=== PATIENT | female | born 1995 | race Caucasian/White ===

== ENCOUNTER 2018-03-16 10:06 | Emergency (ER) | payer SELFPAY ==
[2018-03-16 10:37] LABS: #Basophils 0.1 thou/uL (0.0-0.2); #Eosinphils 0.2 thou/uL (0.0-0.7); #Monocytes 0.9 thou/uL (0.11-0.59); #Neutrophils 10.5 thou/uL (1.40-6.50); %Basophils 0.4 % (0.0-1.0); %Lymphocytes 20.3 % (21.0-51.0); %Monocytes 6.4 % (0.0-10.0); %Neutrophils 71.8 % (42.0-75.0); Hemoglobin 15.3 g/dL (12.0-16.0); Mean Corpuscular HGB CONC 33.2 g/dL (32.0-36.0); Mean Corpuscular Hemoglobin 29.8 pg (27.0-31.0); Mean Corpuscular Volume 89.9 fL (78.0-98.0); Mean Platelet Volume 8.6 fL (7.4-10.4); Platelet Count 270 thou/uL (130-400); RBC Distribution Width 11.9 % (11.5-14.5); Red Blood Cell (RBC) Count 5.11 mill/uL (4.20-5.40); White Blood Cell (WBC) Count 14.6 thou/uL (4.8-10.8)
[2018-03-16 10:58] LABS: ALT (SGPT) 62 U/L (8-55); AST (SGOT) 41 U/L (5-34); Albumin 4.4 g/dL (3.5-5.0); Alkaline Phosphatase 69 U/L (40-150); Anion Gap 12 mmol/L (10-20); BUN (Urea Nitrogen) 9 mg/dL (7.0-18.7); Bilirubin, Total 0.5 mg/dL (0.2-1.2); Calc. Creatinine Clearance 0 mL/min (70-130); Calcium 9.6 mg/dL (7.8-10.44); Carbon Dioxide 24 mmol/L (22-29); Chloride 105 mmol/L (98-107); Estimated GFR-MDRD Greater than 90; Globulin 3.5 g/dL (2.4-3.5); Glucose 158 mg/dL (70-105); Potassium 3.8 mmol/L (3.5-5.1); Protein, Total 7.9 g/dL (6.0-8.3); Sodium 137 mmol/L (136-145)
--- NOTE | 2018-03-18 19:54 | EKG ---
Test Reason : N/V, DIZZINESS Blood Pressure : / mmHG Vent. Rate : 115 BPM Atrial Rate : 115 BPM P-R Int : 148 ms QRS Dur : 082 ms QT Int : 304 ms P-R-T Axes : 030 043 007 degrees QTc Int : 420 ms Sinus tachycardia Nonspecific T wave abnormality Abnormal ECG Confirmed by BAMBI JIEMNEZ DO ([id number]), manuscript editor DALILA VO ([id number]) on 03/18/2018 7:53:41 PM Referred By: Confirmed By:BAMBI JIMENEZ DO
== END 2018-03-16 11:50 | disposition home or self-care (01) ==
LOC: ERS 10:06
DX: B34.9 Viral infection, unspecified (principal)
CPT/HCPCS: 36415; 80053; 85025; 93005; 96360

== ENCOUNTER 2021-09-11 19:01 | Inpatient (IN) | payer SELFPAY ==
[~2021-09-11 19:01] MED LIST: Iopamidol-370 76% 500 ML 1 ML ONE
[2021-09-11] MEDS ORDERED: Acetaminophen 500 MG TAB ONE (19:12)
[2021-09-11] MEDS ORDERED: Morphine 4 MG/ML VIAL ONE (19:13)
[2021-09-11] MEDS ORDERED: Cefepime 2 GM VIAL ONE (19:19)
[2021-09-11 19:22] LABS: #Basophils 0.1 thou/uL (0.0-0.2); #Eosinphils 0.2 thou/uL (0.0-0.7); #Lymphocytes 2.9 thou/uL (1.20-3.40); #Monocytes 1.1 thou/uL (0.11-0.59); #Neutrophils 11.4 thou/uL (1.40-6.50); %Basophils 0.4 % (0.0-1.0); %Eosinophils 1.5 % (0.0-10.0); %Lymphocytes 18.3 % (21.0-51.0); %Monocytes 6.8 % (0.0-10.0); %Neutrophils 72.9 % (42.0-75.0); Hemoglobin 15.8 g/dL (12.0-16.0); Mean Corpuscular HGB CONC 32.9 g/dL (32.0-36.0); Mean Corpuscular Hemoglobin 30.6 pg (27.0-31.0); Mean Corpuscular Volume 93.1 fL (78.0-98.0); Mean Platelet Volume 9.2 fL (7.4-10.4); Platelet Count 246 thou/uL (130-400); RBC Distribution Width 11.9 % (11.5-14.5); Red Blood Cell (RBC) Count 5.17 mill/uL (4.20-5.40); White Blood Cell (WBC) Count 15.6 thou/uL (4.8-10.8)
[2021-09-11 19:34] LABS: Prothrombin Time 13.1 sec (12.0-14.7)
[2021-09-11 19:35] LABS: PTT 30.2 sec (22.9-36.1)
[2021-09-11 19:43] LABS: ALT (SGPT) 117 U/L (8-55); AST (SGOT) 55 U/L (5-34); Albumin 4.2 g/dL (3.5-5.0); Alkaline Phosphatase 75 U/L (40-110); Anion Gap 13 mmol/L (10-20); BUN (Urea Nitrogen) 7 mg/dL (7.0-18.7); Bilirubin, Total 0.7 mg/dL (0.2-1.2); Calc. Creatinine Clearance 0 mL/min (70-130); Calcium 9.1 mg/dL (7.8-10.44); Carbon Dioxide 26 mmol/L (22-29); Globulin 3.9 g/dL (2.4-3.5); Glucose 238 mg/dL (70-105); Potassium 4.1 mmol/L (3.5-5.1); Protein, Total 8.1 g/dL (6.0-8.3); Sodium 135 mmol/L (136-145)
[2021-09-11 20:10] LABS: Chloride 100 mmol/L (98-107)
[2021-09-11] MEDS ORDERED: Lidocaine 1% w/Epinephrine 1:100K 20 ML VIAL ONE (20:37)
[2021-09-11] MEDS ORDERED: Vancomycin 1 GM/200 ML BAG ONE (20:46)
[2021-09-11] MEDS ORDERED: Ondansetron ODT 4 MG TAB PO PRN (21:14)
[2021-09-11 22:02] LABS: Bacteria/HPF 1+ HPF (None Seen); Bilirubin Negative (Negative); Blood, Urine 3+ (Negative); Clarity Clear (Clear); Glucose, Urine (Dipstick) 200 mg/dL (Negative); Ketone, Urine Trace mg/dL (Negative); Leukocyte 75 Leu/uL (Negative); Nitrite Negative (Negative); Protein, Urine (Dipstick) 20 mg/dL (Neg-Trace); Specific Gravity, Urine 1.054 (1.002-1.036); Urobilinogen Normal mg/dL (Less than 2)
[2021-09-11 23:53] VITALS: BMI 47.0
[2021-09-12] MEDS ORDERED: Vancomycin 1.5 GRAM/300 ML BAG 1.5 GM in Premix Bag 1 BAG IVPB SCH (00:30)
[2021-09-12 01:59] LABS: SARS-CoV-2 NAA Rapid Test Not Detected (NotDetected)
[2021-09-12] MEDS: Acetaminophen 325 MG TAB PO PRN ×3 (04:14→18:00)
[2021-09-12 05:47] LABS: #Eosinphils 0.2 thou/uL (0.0-0.7); #Lymphocytes 2.4 thou/uL (1.20-3.40); #Monocytes 0.9 thou/uL (0.11-0.59); %Basophils 0.1 % (0.0-1.0); %Eosinophils 1.6 % (0.0-10.0); %Lymphocytes 21.1 % (21.0-51.0); %Monocytes 7.5 % (0.0-10.0); %Neutrophils 69.7 % (42.0-75.0); Hemoglobin 13.3 g/dL (12.0-16.0); Mean Corpuscular HGB CONC 32.2 g/dL (32.0-36.0); Mean Corpuscular Hemoglobin 30.5 pg (27.0-31.0); Mean Corpuscular Volume 94.7 fL (78.0-98.0); Platelet Count 198 thou/uL (130-400); RBC Distribution Width 11.8 % (11.5-14.5); Red Blood Cell (RBC) Count 4.38 mill/uL (4.20-5.40); White Blood Cell (WBC) Count 11.5 thou/uL (4.8-10.8)
[2021-09-12 06:09] LABS: Anion Gap 11 mmol/L (10-20); BUN (Urea Nitrogen) Less than 4 mg/dL (7.0-18.7); Calc. Creatinine Clearance 251 mL/min (70-130); Calcium 8.1 mg/dL (7.8-10.44); Carbon Dioxide 25 mmol/L (22-29); Chloride 104 mmol/L (98-107); Glucose 313 mg/dL (70-105); Potassium 3.6 mmol/L (3.5-5.1); Sodium 136 mmol/L (136-145)
[2021-09-12] MEDS ORDERED: HumaLOG 300 UNITS/3 ML VIAL SC PRN (08:59)
[2021-09-12] MEDS ORDERED: Dextrose 50% Abboject 50 ML SYRINGE SLOW IVP PRN (08:59)
[2021-09-12] MEDS ORDERED: Dextrose 5% in Water 1,000 ML IV PRN (08:59)
[2021-09-12] MEDS: Enoxaparin Sodium 40 MG/0.4 ML SYRINGE SC SCH (09:44)
[2021-09-12] MEDS ORDERED: Lidocaine 1% w/Epinephrine 1:100K 20 ML VIAL NERVE BLCK SCH (09:45)
[2021-09-12] MEDS ORDERED: Insulin Glargine 30 UNITS/0.3 ML VIAL SC SCH (09:45)
[2021-09-12] MEDS: Vancomycin 1 GM in Premix Bag 1 BAG IVPB SCH ×2 (09:45→17:11)
[2021-09-12] MEDS ORDERED: Lidocaine 1% (PF) 30 ML VIAL NERVE BLCK SCH (09:45)
[2021-09-12] MEDS: Ketorolac Tromethamine 30 MG/ML VIAL IVP PRN (10:05)
[2021-09-12] MEDS: HumaLOG 300 UNITS/3 ML VIAL SC SCH ×2 (12:03→16:52)
[2021-09-12] MEDS: HumaLOG 300 UNITS/3 ML VIAL SC PRN (16:53)
[2021-09-12] MEDS ORDERED: hydrOXYzine 10 MG TAB PO SCH (17:00)
[2021-09-13 01:35] LABS: Vancomycin, Trough 7.9 ug/mL
[2021-09-13] MEDS: Vancomycin 1.5 GRAM/300 ML BAG 1.5 GM in Premix Bag 1 BAG IVPB SCH ×3 (02:11→17:58)
[2021-09-13] MEDS: HumaLOG 300 UNITS/3 ML VIAL SC PRN (05:44)
[2021-09-13 07:23] LABS: #Eosinphils 0.3 thou/uL (0.0-0.7); #Lymphocytes 2.7 thou/uL (1.20-3.40); #Monocytes 0.6 thou/uL (0.11-0.59); #Neutrophils 4.8 thou/uL (1.40-6.50); %Basophils 0.5 % (0.0-1.0); %Eosinophils 3.8 % (0.0-10.0); %Lymphocytes 31.9 % (21.0-51.0); %Monocytes 7.4 % (0.0-10.0); %Neutrophils 56.4 % (42.0-75.0); Hemoglobin 14.1 g/dL (12.0-16.0); Mean Corpuscular HGB CONC 32.7 g/dL (32.0-36.0); Mean Platelet Volume 9.1 fL (7.4-10.4); Platelet Count 195 thou/uL (130-400); RBC Distribution Width 11.7 % (11.5-14.5); Red Blood Cell (RBC) Count 4.54 mill/uL (4.20-5.40); White Blood Cell (WBC) Count 8.5 thou/uL (4.8-10.8)
[2021-09-13 08:01] LABS: ALT (SGPT) 70 U/L (8-55); AST (SGOT) 42 U/L (5-34); Albumin 3.4 g/dL (3.5-5.0); Alkaline Phosphatase 64 U/L (40-110); Anion Gap 8 mmol/L (10-20); BUN (Urea Nitrogen) 4 mg/dL (7.0-18.7); Bilirubin, Total 0.5 mg/dL (0.2-1.2); Calc. Creatinine Clearance 251 mL/min (70-130); Calcium 8.8 mg/dL (7.8-10.44); Carbon Dioxide 29 mmol/L (22-29); Chloride 104 mmol/L (98-107); Globulin 3.1 g/dL (2.4-3.5); Glucose 222 mg/dL (70-105); Potassium 3.4 mmol/L (3.5-5.1); Protein, Total 6.5 g/dL (6.0-8.3); Sodium 138 mmol/L (136-145)
[2021-09-13] MEDS ORDERED: Lantus 1000 UNITS/10 ML VIAL SC SCH (09:00)
[2021-09-13] MEDS ORDERED: metFORMIN XR 500 MG TAB PO SCH (09:15)
[2021-09-13] MEDS: Ketorolac Tromethamine 30 MG/ML VIAL IVP PRN (09:35)
[2021-09-13] MEDS: HumaLOG 300 UNITS/3 ML VIAL SC SCH ×3 (09:36→17:59)
[2021-09-13] MEDS: Enoxaparin Sodium 40 MG/0.4 ML SYRINGE SC SCH (09:36)
[2021-09-13] MEDS ORDERED: Insulin Glargine 30 UNITS/0.3 ML VIAL SC SCH (09:45)
[2021-09-13] MEDS: Acetaminophen 325 MG TAB PO PRN (21:35)
[2021-09-14 01:48] LABS: Vancomycin, Trough 12.2 ug/mL
[2021-09-14] MEDS: Vancomycin 1.5 GRAM/300 ML BAG 1.5 GM in Premix Bag 1 BAG IVPB SCH ×2 (02:45→11:20)
[2021-09-14] MEDS: Ketorolac Tromethamine 30 MG/ML VIAL IVP PRN (02:47)
[2021-09-14] MEDS ORDERED: Morphine 4 MG/ML VIAL SLOW IVP SCH (07:00)
[2021-09-14] MEDS ORDERED: Morphine 4 MG/ML VIAL SLOW IVP PRN (07:51)
[2021-09-14] MEDS: metFORMIN XR 500 MG TAB PO SCH (08:49)
[2021-09-14] MEDS: HumaLOG 300 UNITS/3 ML VIAL SC SCH (08:49)
[2021-09-14] MEDS: Enoxaparin Sodium 40 MG/0.4 ML SYRINGE SC SCH (08:49)
[2021-09-14] MEDS ORDERED: Insulin Glargine 30 UNITS/0.3 ML VIAL SC SCH (09:00)
[2021-09-14] MEDS ORDERED: Ibuprofen 600 MG TAB PO PRN (10:43)
[2021-09-14] MEDS ORDERED: Sulfameth/Trimethoprim DS 800-160mg TAB PO SCH (10:45)
[2021-09-14] MEDS: HumaLOG 300 UNITS/3 ML VIAL SC PRN (11:36)
[2021-09-14] MEDS ORDERED: NPH, Human Insulin Isophane 300 UNIT/3 ML VIAL SC SCH ×2 (17:00→21:00)
[2021-09-14] MEDS: Sulfameth/Trimethoprim DS 800-160mg TAB PO SCH (21:28)
[2021-09-15] MEDS: HumuLIN 70/30 (300 UNITS/3 ML VIAL) SC SCH ×2 (09:26→16:52)
[2021-09-15] MEDS: metFORMIN XR 500 MG TAB PO SCH (09:29)
[2021-09-15] MEDS: Enoxaparin Sodium 40 MG/0.4 ML SYRINGE SC SCH (09:30)
[2021-09-15] MEDS: Sulfameth/Trimethoprim DS 800-160mg TAB PO SCH (09:31)
[2021-09-15] MEDS: HumaLOG 300 UNITS/3 ML VIAL SC PRN (14:08)
[2021-09-15 15:55] VITALS: BP 96/64; TEMP 98.3
== END 2021-09-15 18:00 | disposition home or self-care (01) | DRG 872 ==
LOC: ERS 19:01 → SURG A 20:51 → OBSVTOIN 20:51
PROVIDERS: ADMIT Emergency Medicine; ATTEND Emergency Medicine
PROC: 3E03329 Introduction of Other Anti-infective into Peripheral Vein, Percutaneous Approach (ICD-10-PCS; principal; 2021-09-11)
PROC: 0H9JXZZ Drainage of Left Upper Leg Skin, External Approach (ICD-10-PCS; 2021-09-12)
DX: A41.9 Sepsis, unspecified organism (principal); L02.415 Cutaneous abscess of right lower limb; L03.115 Cellulitis of right lower limb; Z68.42 Body mass index [BMI] 45.0-49.9, adult; Z20.822 Contact with and (suspected) exposure to COVID-19; E66.9 Obesity, unspecified; E11.9 Type 2 diabetes mellitus without complications
CPT/HCPCS: 10060; 36415; 36416; 80048; 80053; 80202; 81003; 81015; 83036; 83605; 85025; 85610; 85730; 87040; 87070; 87077; 87086; 87205; 94760; 96365; 96366; 96367; 96375; J0692; J1650; J1815; J1885; J2270; J3370; Q0162; Q9967; U0002

== ENCOUNTER 2022-03-03 09:02 | Emergency (ER) | payer SELFPAY ==
[2022-03-03] MEDS ORDERED: Bicillin LA 1.2 MILLION UNITS/2 ML SYRINGE ONE (10:47)
[2022-03-03] MEDS ORDERED: Dexamethasone 10 MG/ML VIAL ONE (10:47)
== END 2022-03-03 11:12 | disposition home or self-care (01) ==
LOC: ERS 09:02
DX: J02.0 Streptococcal pharyngitis (principal)
CPT/HCPCS: 96372; 99282; J0561; J1100

== ENCOUNTER 2022-05-15 13:56 | Emergency (ER) | payer MEDICAID ==
[2022-05-15] MEDS ORDERED: Bicillin LA 2.4 MILL.UNITS/4 ML SYRINGE ONE (14:23)
[2022-05-15] MEDS ORDERED: Dexamethasone 10 MG/ML VIAL ONE (14:23)
[2022-05-15] MEDS ORDERED: Bicillin LA 1.2 MILLION UNITS/2 ML SYRINGE ONE (14:32)
== END 2022-05-15 15:13 | disposition home or self-care (01) ==
LOC: ERS 13:56
DX: J02.0 Streptococcal pharyngitis (principal)
CPT/HCPCS: 96372; 99282; J0561; J1100

== ENCOUNTER 2024-12-19 04:04 | Emergency (ER) | payer BC ==
[2024-12-19 04:53] LABS: Cocaine Metabolite Screen Negative (Negative); THC/Cannabinoid Screen PRELIM POSITIVE (Negative); Tricyclic Screen Negative (Negative)
[2024-12-19 04:57] LABS: Pregnancy Test - Urine (BHCG) Negative (Negative); Pregu Control Background? CLEAR/WHITE (CLR/WHITE); Pregu Control Bar Appear? YES (CONTROL BAR)
[2024-12-19 05:01] LABS: #Basophils 0.03 10x3/uL (0.0-0.2); #Eosinophils 0.14 10x3/uL (0.0-0.7); #Monocytes 0.67 10x3/uL (0.11-0.59); #Neutrophils 5.07 10x3/uL (1.40-6.50); %Basophils 0.3 % (0.0-1.0); %Eosinophils 1.5 % (0.0-10.0); %Lymphocytes 34.6 % (21.0-51.0); %Monocytes 7.4 % (0.0-10.0); %Neutrophils 55.9 % (42.0-75.0); Hematocrit 41.7 % (36.0-47.0); Hemoglobin 13.6 g/dL (12.0-16.0); Mean Corpuscular Hemoglobin 29.3 pg (27.0-31.0); Mean Corpuscular Volume 89.9 fL (78.0-98.0); Platelet Count 246 10x3/uL (130-400); Red Blood Cell (RBC) Count 4.64 mill/uL (4.20-5.40); White Blood Cell (WBC) Count 9.08 10x3/uL (4.8-10.8)
[2024-12-19 05:20] LABS: Acetaminophen Less than 10 mcg/mL (Less than 10); Salicylate Less than 8.0 mg/dL (Less than 8.0)
[2024-12-19 05:21] LABS: ALT (SGPT) 22 U/L (Less than 34); AST (SGOT) 23 U/L (11-34); Albumin 4.2 g/dL (3.1-4.5); Alkaline Phosphatase 49 U/L (40-110); Anion Gap 14 mmol/L (10-20); BUN (Urea Nitrogen) 12 mg/dL (7.0-18.7); Bilirubin, Total 0.5 mg/dL (0.3-1.2); Calc. Creatinine Clearance 0 mL/min (70-130); Calcium 9.0 mg/dL (7.8-10.44); Carbon Dioxide 25 mmol/L (22-29); Chloride 108 mmol/L (98-107); Globulin 2.6 g/dL (2.4-3.5); Glucose 79 mg/dL (70-105); Potassium 3.8 mmol/L (3.5-5.1); Sodium 143 mmol/L (136-145)
[2024-12-19 05:25] LABS: Bacteria/HPF None Seen HPF (None Seen); CAUTI Indications for Culture Alt mental st,lethar; Glucose, Urine (Dipstick) Normal (Negative); Leukocyte Negative Leu/uL (Negative); Protein, Urine (Dipstick) Negative (Neg-Trace); RBC/HPF 0-3 HPF (0-3); Specific Gravity, Urine 1.030 (1.002-1.036); WBC/HPF 0-3 HPF (0-3)
[2024-12-19 05:29] LABS: Urine Culture Reflex No No
== END 2024-12-19 09:55 | disposition home or self-care (01) ==
LOC: ERS 04:04
DX: F43.20 Adjustment disorder, unspecified (principal); F17.290 Nicotine dependence, other tobacco product, uncomplicated
CPT/HCPCS: 36415; 80053; 80306; 80307; 81001; 81025; 85025; 93005; 99285

== ENCOUNTER 2025-04-09 19:39 | Emergency (ER) | payer BC ==
[2025-04-09 20:24] LABS: #Basophils 0.10 10x3/uL (0.0-0.2); #Eosinophils 0.78 10x3/uL (0.0-0.7); #Monocytes 0.65 10x3/uL (0.11-0.59); #Neutrophils 5.65 10x3/uL (1.40-6.50); %Basophils 0.9 % (0.0-1.0); %Eosinophils 7.1 % (0.0-10.0); %Lymphocytes 34.1 % (21.0-51.0); %Monocytes 5.9 % (0.0-10.0); %Neutrophils 51.7 % (42.0-75.0); Hematocrit 42.6 % (36.0-47.0); Hemoglobin 13.9 g/dL (12.0-16.0); Mean Corpuscular Hemoglobin 29.4 pg (27.0-31.0); Mean Corpuscular Volume 90.3 fL (78.0-98.0); Platelet Count 278 10x3/uL (130-400); Red Blood Cell (RBC) Count 4.72 mill/uL (4.20-5.40); White Blood Cell (WBC) Count 10.94 10x3/uL (4.8-10.8)
[2025-04-09] MEDS ORDERED: Metoclopramide HCl 10 MG (2 mL) VIAL ONE (20:24)
[2025-04-09] MEDS ORDERED: diphenhydrAMINE 50 MG/ML VIAL ONE (20:24)
[2025-04-09 20:35] LABS: BHCG - Serum Negative (NEGATIVE); Pregs Control Background? CLEAR/WHITE (CLR/WHITE); Pregs Control Bar Appear? YES (CONTROL BAR)
[2025-04-09 20:38] LABS: ALT (SGPT) 23 U/L (Less than 34); AST (SGOT) 26 U/L (11-34); Albumin 4.3 g/dL (3.1-4.5); Alkaline Phosphatase 54 U/L (40-110); Anion Gap 16 mmol/L (10-20); BUN (Urea Nitrogen) 10 mg/dL (7.0-18.7); Bilirubin, Total 0.3 mg/dL (0.3-1.2); Calc. Creatinine Clearance 0 mL/min (70-130); Calcium 9.2 mg/dL (7.8-10.44); Carbon Dioxide 25 mmol/L (22-29); Chloride 106 mmol/L (98-107); Globulin 3.0 g/dL (2.4-3.5); Glucose 84 mg/dL (70-105); Potassium 3.8 mmol/L (3.5-5.1); Sodium 143 mmol/L (136-145)
[2025-04-09 20:53] LABS: Pregnancy Test - Urine (BHCG) Negative (Negative); Pregu Control Background? CLEAR/WHITE (CLR/WHITE); Pregu Control Bar Appear? YES (CONTROL BAR)
[2025-04-09 20:58] LABS: Bacteria/HPF None Seen HPF (None Seen); CAUTI Indications for Culture Pelvic or flank pain; RBC/HPF None Seen HPF (0-3); WBC/HPF 0-3 HPF (0-3)
[2025-04-09 21:00] LABS: Urine Culture Reflex No No
[2025-04-09 21:02] LABS: Specific Gravity, Urine 1.034 (1.002-1.036)
[2025-04-09 21:03] LABS: Glucose, Urine (Dipstick) Normal (Negative); Leukocyte 25 Leu/uL (Negative); Protein, Urine (Dipstick) Negative (Neg-Trace)
== END 2025-04-09 22:03 | disposition home or self-care (01) ==
LOC: ERS 19:39
DX: R51.9 Headache, unspecified (principal); R29.700 NIHSS score 0; F17.290 Nicotine dependence, other tobacco product, uncomplicated
CPT/HCPCS: 71045; 80053; 81001; 81025; 84703; 85025; 87428; 93005; 94760; 96374; 96375; J1200; J2765